=== PATIENT | female | born 2005 | race Caucasian/White ===

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

== ENCOUNTER → 2024-09-10 10:45 | Outpatient (BNVA) | payer BC, SELFPAY | PROVIDERS: PCP Pediatrics; Visit Provider Nurse Practitioner Women's Health | DX: Z01.419 Encounter for gynecological examination (general) (routine) without abnormal findings (principal); N91.2 Amenorrhea, unspecified; N92.6 Irregular menstruation, unspecified | CPT/HCPCS: 82306; 82670; 83001; 83002; 83036; 83520; 83525; 84144; 84146; 84402; 84403; 84443; 85025 ==

== ENCOUNTER → 2024-09-23 11:35 | Outpatient (BNVA) | payer BC, SELFPAY | PROVIDERS: PCP Pediatrics; Visit Provider Nurse Practitioner Women's Health | DX: E28.2 Polycystic ovarian syndrome (principal) | CPT/HCPCS: 76830 ==

== ENCOUNTER → 2024-11-11 15:08 | Outpatient (BNVA) | payer BC, SELFPAY | PROVIDERS: PCP Pediatrics; Visit Provider Nurse Practitioner Women's Health | DX: Z31.9 Encounter for procreative management, unspecified (principal); E28.2 Polycystic ovarian syndrome | CPT/HCPCS: 84144 ==

== ENCOUNTER 2024-12-16 15:32 | Outpatient (CLI) | payer BC, SELFPAY | END 2024-12-16 15:33 | disposition home or self-care (01) | LOC: LAB 15:33 | PROVIDERS: PCP Pediatrics; Visit Provider Nurse Practitioner Women's Health | DX: R10.10 Upper abdominal pain, unspecified (principal) | CPT/HCPCS: 87338 ==

== ENCOUNTER → 2024-12-25 08:08 | Outpatient (BNVA) | payer BC, SELFPAY | PROVIDERS: PCP Pediatrics; Visit Provider Nurse Practitioner Women's Health | DX: Z31.9 Encounter for procreative management, unspecified (principal); E28.2 Polycystic ovarian syndrome | CPT/HCPCS: 84144 ==

== ENCOUNTER 2025-01-20 20:40 | Emergency (ER) | payer BC, SELFPAY ==
[2025-01-20 21:03] VITALS: BP 129/90; PULSE 88; RESP 16; TEMP 36.9; O2SAT 99; BMI 27.4
--- OUTSIDE RECORDS SUMMARY | 2025-01-20 21:43 | XMS_ITS | Clinical Summary ---
Author Organization [facility] Address [address] [place] [address] Phone Care Team Providers Care Utility Driver Name Role Phone Abdullahi Bolton MD Primary Care Provider [phone] Allergies No known active allergies Medications No known medications Active Problems No known active problems Social History Tobacco Use Types Packs/Day Years Used Date Smoking Tobacco: Never Comments Unknown Sex and Gender Information Value Date Recorded Sex Assigned at Not on file Legal Sex Female 11:45 AM CDT Gender Identity Not on file Sexual Orientation Not on file Last Filed Vital Signs Vital Sign Reading Time Taken Comments Blood Pressure 79/65 08/29/2016 1:00 PM CDT Pulse 68 08/29/2016 1:00 PM CDT Temperature - - Respiratory Rate - - Oxygen Saturation 99% 08/29/2016 1:00 PM CDT Inhaled Oxygen Concentration - - Weight 39.9 kg (88 lb) 08/29/2016 1:00 PM CDT Height 151.1 cm (4' 11.5 ) 08/29/2016 1:00 PM CD T Body Mass Index 17.48 08/29/2016 1:00 PM CDT Plan of Treatment Health Maintenance Due Date Last Done Comments CHLAMYDIA SCREENING (ANNUAL) 11-24 YEARS 07/14/2015 HPV VACCINES (1 - 3-dose series) 07/14/2019 DTAP/TDAP/TD VACCINES (1 - Tdap) 07/14/2023 HEPATITIS B VACCINES (1 of 3 - 19+ 3-dose series) 06/15 INFLUENZA VACCINE (#1) 2024 Insurance [facility] Care Teams Utility Driver Relationship Specialty Start Date End Date Abdullahi Bolton MD [address] [place] [address] PCP - General Pediatrics 05/17/16
--- OUTSIDE RECORDS SUMMARY | 2025-01-20 21:43 | XMS_ITS | Clinical Summary ---
Author Organization [facility] Address [address] 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
--- NOTE | 2025-01-20 22:07 | ED_ITS ---
HPI - Abdominal Pain 2 General: Chief Complaint: Abdominal Pain Stated Complaint: Abd Pain Time Seen by Provider: 01/20/25 22:04 Source: patient Mode of arrival: ambulatory Limitations: no limitations History of Present Illness: Patient is a 19-year-old female presents to ED today with a complaint of epigastric pain. She states this has been an ongoing intermittent issue for approximately a year. She feels like pain often starts mid meals. She has not found any specific foods that trigger her symptoms. She has also had episodes that are not associated with eating. She has had nausea but no episodes of vomiting. She has recently been constipated so has been using Dulcolax laxatives over the past 2 days and has had bowel movements but now a little diarrhea. No fevers. Wonders about alpha gal but no obvious correlation with mammalian products. She has been tested for h. pylori and this was negative. She does have a history of PCOS so will sometimes have lower pelvic pain associated with this. Patient has not noticed any episodes of hematemesis. She does not complain of black or tarry stools. MD elicited complaint: abdominal pain Pertinent past history: other (PCOS) Pain Consistency: intermittent Location: Epigastric Severity: severe Pain scale (0-10): 7 Quality: stabbing and sharp Radiation: back Migration to: no migration Exacerbating factors: eating Relieving factors: other (certain positions, putting pressure on area) Associated Symptoms: Reports bloating and nausea; Denies chills, dysuria, fever(s), hematochezia, hematuria, hematemesis, melena and vomiting Related Data Date of Last Menstrual Period: 12/16/24 Previous Rx's ?Medication ?Instructions ?Recorded medroxyprogesterone 10 mg tablet 10 mg PO DAILY #20 ta bs 10/04/24 (Provera) letrozole 2.5 mg tablet 2.5 mg PO DAILY 5 days #5 ta bs 11/14/24 famotidine 40 mg tablet (Pepcid) 40 mg PO BID 4 weeks #56 tabs 01/21/25 pantoprazole 40 mg tablet,delayed See Rx Instructions .Route 01/21/25 release (Protonix) .COMPLEX 4 weeks #35 tabs sucralfate 1 gram tablet (Carafate) 1 g PO TID 2 weeks #42 tabs 01/21/25 Allergies Allergy/AdvReac Type Severity Reaction Status Date / Time No Known Allergies Allergy Verified 11/14/24 16:00 Review of Systems 2 Const: Denies: fever(s), chills, body aches, fatigue or malaise Card: Denies: chest pain Resp: Denies: dyspnea, productive cough, non-productive cough or wheezing GI: Reports: abdominal pain, nausea and bloating; Denies: vomiting, hematemesis, dysphagia, hematochezia or melena : Denies: flank pain, difficulty voiding, dysuria, urinary frequency or hematuria Musc: Denies: neck pain, back pain, extremity pain or joint swelling Skin/Breast: Denies: rash Neuro: Denies: headache(s), numbness in extremities, weakness in extremities, sensory changes or dizziness PFSH ED 2 PFSH: Medical History No pertinent past medical history Surgical History No pertinent past surgical history Family History Denies family history of Colon cancer Ovarian cancer Diabetes Heart disease Breast cancer Hypertension Uterine cancer Thyroid disease Stroke Social History Smoking and tobacco/nicotine status: never used tobacco/nicotine Female Reproductive History: Date of last menstrual period: 12/16/24 Physical Exam 2 Const: COMMON NORMALS: no acute distress, average body habitus, patient oriented x3, no limitations, healthy appearing, alert and well nourished G ENERAL APPEARANCE: cooperative ORIENTATION/CONSCIOUSNESS: Yes awake, Yes oriented to person, Yes oriented to place and Yes oriented to time HENMT: COMMON NORMALS: normocephalic and atraumatic HEAD & SCALP: normal to inspection, normocephalic and atraumatic Eye: COMMON NORMALS: no scleral icterus Chest: COMMONS NORMALS: normal inspection of the chest and normal palpation of entire chest wall Resp: COMMON NORMALS: normal respiratory effort and clear to auscultation bilaterally AUSCULTATION: clear to auscultation bilaterally Cardio: COMMON NORMALS: regular rate and regular rhythm RATE: regular rate RHYTHM: regular rhythm GI: COMMON NORMALS: Normal to inspection, nondistended, normoactive bowel sounds present, Soft to palpation, No hepatosplenomegaly present and no masses INSPECTION: Yes normal to inspection AUSCULTATION: Yes normoactive bowel sounds PALPATION: Yes Soft to palpation, Yes Tenderness to palpation present (GI) (epigastric), No Guarding due to palpation present (GI), No Rigid due to palpation and Yes No hepatosplenomegaly present : COMMON NORMALS: Yes no CVA tenderness BLADDER/KIDNEY EXAM: Yes no CVA tenderness Back/Pelvis: COMMON NORMALS: no CVA tenderness Extremity: GENERAL: Yes normal exam except as noted Neuro: COMMON NORMALS: patient oriented x3 SENSORIUM/ORIENTATION: Yes alert, Yes oriented to person, Yes oriented to place and Yes oriented to time Skin: COMMON NORMALS: no rashes or lesions noted GENERAL SKIN EXAM: no rashes or lesions noted Course 2 Vital Signs: Vital signs: Vital Signs Temperature 98.5 F 01/20/25 21:03 Pulse Rate 84 01/21/25 00:36 Respiratory Rate 16 01/21/25 00:33 Blood Pressure 122/83 01/21/25 00:36 Pulse Oximetry 98 01/21/25 00:36 Oxygen Delivery Me thod Room Air 01/21/25 00:36 MDM - Abdominal Pain Medical Decision Making Patient is a 19-year-old female who presents to ED today along with family for concerns of epigastric abdominal pain. This reportedly has been an ongoing issue over the past year although tonight's episode seems particularly bothersome. Patient's vital signs are stable upon arrival. Trialed with a GI cocktail which did not overly seem to help with symptoms. Blood work showing a white count of 18.8. Remainder of her labs are unremarkable. Chemistry including LFTs are normal. UA/ negative. US gallbladder initially obtained and unremarkable. Upon re-evaluation patient does not feel any better and is complaining of worsening pain thus decision for CT imaging was discussed and ultimately agreed upon-this was unremarkable. She does have an upcoming appointment with Dr. Altamirano for further evaluation. Plan will be to trial her on H2/PPI and avoid potential diet triggers. Return precautions discussed. Differential Diagnosis Likely abdominal pain, acute appendicitis, constipation, diverticulitis, gastroenteritis and small bowel obstruction Medical Records I reviewed the patient's medical records. Lab Data I reviewed the patient's lab results. 01/20/25 21:48 01/20/25 21:48 Labs/Radiology: Radiology Impressions Gallbladder Ultrasound 01/20/25 22:28 IMPRESSION: No acute findings. Abdomen/Pelvis CT 01/20/25 23:58 IMPRESSION: No acute findings. Laboratory Results WBC 18.88 10^3/uL (4.5-13.0) H 01/20/25 21:48 RBC 4.42 10^6/uL (3.85-5.65) 01/20/25 21:48 Hgb 14.50 g/dL (12.4-14.8) 01/20/25 21:48 Hct 40.5 % (36-47) 01/20/25 21:48 MCV 91.6 fl (85-98) 01/20/25 21:48 MCH 32.8 pg (27-33) 01/20/25 21:48 MCHC 35.8 g/dL (30-55) 01/20/25 21:48 RDW 11.2 % (12.1-15.1) L 01/20/25 21:48 Plt Count 313 10^3/cmm (157-399) 01/20/25 21:48 MPV 10.8 fL (7.4-10.4) H 01/20/25 21:48 Neut % (Auto) 79.7 % 01/20/25 21:48 Lymph % (Auto) 13.2 % 01/20/25 21:48 Mcclain % (Auto) 4.8 % 01/20/25 21:48 Eos % (Auto) 1.6 % 01/20/25 21:48 Baso % (Auto) 0.3 % 01/20/25 21:48 Neut # (Auto) 15.03 10^3/uL (1.8-8.0) H 01/20/25 21:48 Lymph # (Auto) 2.5 10^3/uL (1.5-6.5) 01/20/25 21:48 Mcclain # (Auto) 0.9 10^3/uL (0.2-0.9) 01/20/25 21:48 Eos # (Auto) 0.3 10^3/uL (0.0-0.8) 01/20/25 21:48 Baso # (Auto) 0.1 10^3/uL (0.0-0.1) 01/20/25 21:48 Nucleated RBC % (auto) 0 % 01/20/25 21:48 Nucleated RBCs # 0.0 /100WBC 01/20/25 21:48 Sodium 136 mmol/L (136-145) 01/20/25 21:48 Potassium 3.9 mmol/L (3.5-5.1) 01/20/25 21:48 Chloride 101 mmol/L (98-107) 01/20/25 21:48 Carbon Dioxide 23 mmol/L (22-29) 01/20/25 21:48 Anion Gap 15.9 (5-19) 01/20/25 21:48 BUN 13 mg/dL (6-20) 01/20/25 21:48 Creatinine 0.8 mg/dL (0.5-0.9) 01/20/25 21:48 GFR Calculation 91.4 mL/min (90-130) 01/20/25 21:48 Glucose 108 mg/dL (65-115) 01/20/25 21:48 Calculated Osmolality 283 mOsm/kg (285-295) L 01/20/25 21:48 Lactic Acid 1.4 mmol/L (0.5-2.2) 01/20/25 21:48 Calcium 9.7 mg/dL (8.5-10.5) 01/20/25 21:48 Total Bilirubin 0.3 mg/dL (0.15-1.2) 01/20/25 21:48 AST 15 U/L (0-32) 01/20/25 21:48 ALT 15 U/L (0-33) 01/20/25 21:48 Alkaline Phosphatase 86 U/L (35-105) 01/20/25 21:48 C-Reactive Protein 9.1 mg/L (0.0-4.9) H 01/20/25 21:48 Total Protein 8.0 g/dL (6.6-8.7) 01/20/25 21:48 Albumin 4.7 g/dL (3.5-5.2) 01/20/25 21:48 Globulin 3.3 g/dL (1.3-4.6) 01/20/25 21:48 Lipase 32 U/L (13-60) 01/20/25 21:48 HCG, Qual Negative (Negative) 01/20/25 21:48 Urine Color Yellow (Yellow) 01/20/25 21:51 Urine Appearance Cloudy (CLEAR) A 01/20/25 21:51 Urine pH 5.5 (5-7) 01/20/25 21:51 Ur Specific [place] 1.030 (1.005-1.030) 01/20/25 21:51 Urine Protein Negative (Negative) 01/20/25 21:51 Urine Glucose (UA) Negative (Normal) 01/20/25 21:51 Urine Ketones Trace (Negative) 01/20/25 21:51 Urine Blood Negative (Negative) 01/20/25 21:51 Urine Nitrate Negative (Negative) 01/20/25 21:51 Urine Bilirubin Negative (Negative) 01/20/25 21:51 Urine Urobilinogen 0.2 mg/dL (Negative) 01/20/25 21:51 Ur Leukocyte Esterase Negative (Negative) 01/20/25 21:51 Urine RBC 6-10 /hpf (0-2) 01/20/25 21:51 Urine WBC 0-5 /hpf (0-5) 01/20/25 21:51 Ur Squamous Epith Cells 6-10 /hpf (0-5) 01/20/25 21:51 Amorphous Sediment Not Reportable 01/20/25 21:51 Urine Bacteria 1+ /hpf (NONE) H 01/20/25 21:51 Hyaline Casts 0-4 /lpf H 01/20/25 21:51 All radiology interpretation(s) finalized by discharge Discharge Plan Discharge Patient Disposition: Home Clinical Impression: Upper abdominal pain of unknown etiology Condition: Stable Prescriptions: New pantoprazole [Protonix] 40 mg tablet,delayed release (DR/EC) See Rx Instructions .ROUTE .COMPLEX 28 Days Qty: 35 0RF Rx Instructions: 40 mg orally BID x 7 days then once daily thereafter sucralfate [Carafate] 1 gram tablet 1 g PO TID 14 Days Qty: 42 0RF famotidine [Pepcid] 40 mg tablet 40 mg PO BID 28 Days Qty: 56 0RF Discontinued omeprazole 20 mg capsule,delayed release(DR/EC) 20 mg PO DAILY Qty: 60 0RF Rx Instructions: take on tab daily No Action letrozole 2.5 mg tablet 2.5 mg PO DAILY 5 Days Qty: 5 0RF Rx Instructions: take cycle days 2-7 medroxyprogesterone [Provera] 10 mg tablet 10 mg PO DAILY Qty: 20 1RF Rx Instructions: take 1 tab daily for 10 days Discharge Orders: Discharge ED (Routine); Ordered 01/21/25 Ordered By: Janine Hathaway Referrals: Carloz Altamirano DO [Primary Care Provider, [facility]] Patient Instructions: Abdominal Pain (ED), Epigastric Pain (ED), Patient Portal & Anca Instructions Activity Restrictions/Additional Instructions: Blood work today was unremarkable apart from an elevated white count at 18.8- this can be rechecked through primary care. Chemistry including liver enzymes were unremarkable. Ultrasound of your gallbladder performed today was unremarkable. CT imaging obtained as well-this did not show any obvious etiology for your discomfort. Plan will be to trial you on medications to help with potential stomach irritation. Plan for follow-up with Dr. Altamirano for further evaluation of symptoms which could include continued medication management, endoscopy, HIDA scan to further evaluate gallbladder, etc. You may return to the ED at any time for worsening pain, fevers, repetitive episodes of vomiting, generally feeling worse or unwell, or any other concerns you may have. I hope you begin to feel better soon. Print Language: Portuguese Coding Level of Care Code ED Rendering Equipment Tender for Iris Copeland
[2025-01-20 22:13] LABS: Hematocrit 40.5 % (36-47); Hemoglobin 14.50 g/dL (12.4-14.8); Mean Corpuscular HGB Conc 35.8 g/dL (30-55); Mean Corpuscular Hemoglobin 32.8 pg (27-33); Mean Corpuscular Volume 91.6 fl (85-98); Nucleated Red Blood Cells % 0 %; Platelet Count 313 10^3/cmm (157-399); Red Blood Count 4.42 10^6/uL (3.85-5.65); White Blood Count 18.88 10^3/uL (4.5-13.0)
[2025-01-20 22:22] VITALS: BP 127/86; PULSE 88; O2SAT 99
--- NOTE | 2025-01-20 22:28 | USR_ITS ---
PROCEDURE INFORMATION: Exam: US Abdomen, Limited; Right Upper Quadrant Exam date and time: 01/20/2025 11:08 PM Age: 19 years old Clinical indication: Abdominal pain; Epigastric; Additional info: Epigastric pain TECHNIQUE: Imaging protocol: Real time ultrasound of the abdomen with image documentation. Limited exam focused on the right upper quadrant. COMPARISON: US transvaginal [id number] 09/23/2024 11:41 AM FINDINGS: Liver: Normal. No masses. Gallbladder: Normal. No gallstones. There is no gallbladder wall thickening. Negative sonographic Miles's. Biliary ducts: Normal. No stones. No dilation. Pancreas: Visualized pancreas is unremarkable. Right kidney: Normal. No mass. No hydronephrosis. US/US gall bladder [id number] IMPRESSION: No acute findings.
[2025-01-20 22:34] LABS: Glucose Urine UA Negative (Normal); Nitrate Urine Negative (Negative); Specific Gravity, Urine 1.030 (1.005-1.030)
[2025-01-20 22:34] LABS: Lactic Sepsis W/Reflex 1.4 mmol/L (0.5-2.2)
[2025-01-20 22:38] LABS: Alanine Aminotransferase 15 U/L (0-33); Albumin Level 4.7 g/dL (3.5-5.2); Alkaline Phosphatase 86 U/L (35-105); Anion Gap 15.9 (5-19); Aspartate Amino Transferase 15 U/L (0-32); Blood Urea Nitrogen 13 mg/dL (6-20); Calcium 9.7 mg/dL (8.5-10.5); Carbon Dioxide 23 mmol/L (22-29); Chloride 101 mmol/L (98-107); Globulin 3.3 g/dL (1.3-4.6); Glucose 108 mg/dL (65-115); Lipase 32 U/L (13-60); Osmolality Calculated 283 mOsm/kg (285-295); Potassium 3.9 mmol/L (3.5-5.1); Sodium 136 mmol/L (136-145); Total Protein 8.0 g/dL (6.6-8.7)
[2025-01-20 22:40] LABS: HCG, Serum Qual Negative (Negative)
[2025-01-20 23:30] VITALS: BP 123/81; PULSE 81; O2SAT 99
[2025-01-20] MEDS: lidocaine 2% viscous 15 ML, aluminum-mag hydrox-simethicon 30 ML, sucralfate oral liq 1 GM PO (23:35)
[2025-01-20] MEDS: ondansetron 2 mg/ML SDV 2 mL 4 MG IVP (23:35)
--- NOTE | 2025-01-20 23:58 | CTR_ITS ---
PROCEDURE INFORMATION: Exam: CT Abdomen And Pelvis With Contrast Exam date and time: 01/21/2025 12:18 AM Age: 19 years old Clinical indication: Abdominal pain; Epigastric; Additional info: Epigastric pain TECHNIQUE: Imaging protocol: Computed tomography of the abdomen and pelvis with contrast. Radiation optimization: All CT scans at this facility use at least one of these dose optimization techniques: automated exposure control; mA and/or kV adjustment per patient size (includes targeted exams where dose is matched to clinical indication); or iterative reconstruction. Contrast material: OMNI 350; Contrast volume: 100 ml; Contrast route: INTRAVENOUS (IV); COMPARISON: US gall bladder [id number] 01/20/2025 11:08 PM RADIATION DOSE METRICS: Total DLP (mGy-cm): 553.32 FINDINGS: Liver: Normal. No mass. Gallbladder and biliary ducts: Normal. No calcified stones. No ductal dilation. Pancreas: Normal. No ductal dilation. Spleen: Normal. No splenomegaly. Adrenal glands: Normal. No mass. Kidneys and ureters: Normal. No hydronephrosis. Stomach and bowel: Unremarkable. No obstruction. No mucosal thickening. Appendix: No evidence of appendicitis. Intraperitoneal space: Unremarkable. No free air. No significant fluid collection. Vasculature: Unremarkable. No abdominal aortic aneurysm. Lymph nodes: Unremarkable. No enlarged lymph nodes. Urinary bladder: Unremarkable as visualized. Reproductive: Unremarkable as visualized. Bones/joints: Unremarkable. No acute fracture. Soft tissues: Unremarkable. CT/CT abdomen pelvis w con* [id number] IMPRESSION: No acute findings.
[2025-01-21] MEDS: iohexol 350 mg/mL 500 mL Btl (per mL) IV (00:23)
[2025-01-21 00:33] VITALS: RESP 16; O2SAT 98
[2025-01-21] MEDS: morphine 4 mg/mL SDV 1 mL IVP (00:33)
[2025-01-21 00:36] VITALS: BP 122/83; PULSE 84; O2SAT 98
[2025-01-21 01:03] VITALS: BP 121/79; PULSE 92; O2SAT 97
== END 2025-01-21 01:13 | disposition home or self-care (01) ==
PROVIDERS: Emergency Medicine; Emergency Provider Physician Assistant; PCP Electrodiagnostic Medicine
DX: R10.13 Epigastric pain (principal)
CPT/HCPCS: 36415; 74177; 76705; 80053; 81001; 83605; 83690; 84703; 85025; 86140; 96374; 96375; 99285; J2270; J2405; J9999